=== PATIENT | female | born 1950 | race Caucasian/White ===

== ENCOUNTER 2019-09-10 11:52 | Emergency (ER) | payer OTHER ==
[~2019-09-10] VITALS: Ht 160 cm; Wt 93.4 kg
[2019-09-10 11:52] VITALS: BP_SYST 138
--- NOTE | 2019-09-10 11:52 | NUR ---
BROUGHT BACK TO BED #8 AND TRIAGED. REPORT GIVEN TO RICCO
--- NOTE | 2019-09-10 12:15 | NUR ---
ER Dr. Tom at bedside examining patient.
--- NOTE | 2019-09-10 12:25 | NUR ---
I&D Procedure done by Dr linder using sterile technique. Lidocaine 1% used. bacitracin 4x4. amt of bleeding noted. Wound care discussed w/ patient. Pt tolerated procedure well.
--- NOTE | 2019-09-10 12:40 | NUR ---
Patient presentes to ER C/O painful bump. Patient A&Ox4, ambulatory to ER, afebrile, groin bump red, pain 6/10, denies N/V/D. Patient states left groin bump x2 days, increased in size today and painful when in sitting position. Patient states PMD not available.
[2019-09-10] MEDS ORDERED: BACITRACIN 1 GM OINT TP ONE (13:00)
[2019-09-10 13:31] VITALS: BP_SYST 138
--- NOTE | 2019-09-10 13:31 | NUR ---
Patient given written and verbal discharge instructions and verbalizes understanding. ER MD discussed with patient the results and treatment provided. Patient in stable condition. ID arm band removed. Rx of Augmentin given. Patient educated on pain management and to follow up with PMD. Pain Scale 1/10 tolerable for patient. Opportunity for questions provided and answered. Medication side effect fact sheet provided.
== END 2019-09-10 13:31 | disposition home or self-care (01) ==
LOC: SED 11:52
DX: L02.214 Cutaneous abscess of groin (principal); L03.314 Cellulitis of groin; I10 Essential (primary) hypertension; K21.9 Gastro-esophageal reflux disease without esophagitis; Z88.1 Allergy status to other antibiotic agents; Z88.2 Allergy status to sulfonamides; Z88.8 Allergy status to other drugs, medicaments and biological substances
CPT/HCPCS: 99283

== ENCOUNTER 2021-07-14 14:25 | Outpatient (CLI) | payer OTHER | END 2021-07-14 19:01 | disposition home or self-care (01) | LOC: SCT 14:25 | DX: N28.1 Cyst of kidney, acquired (principal); K57.30 Diverticulosis of large intestine without perforation or abscess without bleeding; N20.0 Calculus of kidney; N39.0 Urinary tract infection, site not specified | CPT/HCPCS: 76376 ==